=== PATIENT | male | born 1960 | race Caucasian/White ===

== ENCOUNTER → 2017-02-25 | Outpatient (CLI) | payer BC ==
[~2017-02-25] MED LIST: GADOBUTROL 10 MMOL/10 ML VIAL ONE
== END ==
LOC: CFH 09:51
PROVIDERS: ATTEND Radiology Radiation Oncology
DX: D35.2 Benign neoplasm of pituitary gland (principal); E23.0 Hypopituitarism
CPT/HCPCS: 70553; A9585

== ENCOUNTER → 2017-03-03 | Outpatient (CLI) | payer BC | END | disposition home or self-care (01) | LOC: ROC 10:07 | PROVIDERS: ATTEND Radiology Radiation Oncology | DX: Z08 Encounter for follow-up examination after completed treatment for malignant neoplasm (principal); D35.2 Benign neoplasm of pituitary gland | CPT/HCPCS: 99213; G0463 ==

== ENCOUNTER → 2018-02-24 | Outpatient (CLI) | payer BC | END | disposition home or self-care (01) | LOC: CFH 12:08 | PROVIDERS: ATTEND Radiology Radiation Oncology | DX: D35.2 Benign neoplasm of pituitary gland (principal) | CPT/HCPCS: 70553; A9585 ==

== ENCOUNTER → 2018-03-01 | Outpatient (CLI) | payer BC | END | disposition home or self-care (01) | LOC: ROC 09:28 | PROVIDERS: ATTEND Radiology Radiation Oncology | DX: D35.2 Benign neoplasm of pituitary gland (principal) | CPT/HCPCS: 99213; G0463 ==

== ENCOUNTER → 2019-10-29 | Outpatient (CLI) | payer BC | END | disposition home or self-care (01) | LOC: ROC 07:46 | PROVIDERS: ATTEND Radiology Radiation Oncology | DX: D35.2 Benign neoplasm of pituitary gland (principal) | CPT/HCPCS: 99213; G0463 ==